=== PATIENT | male | born 1945 | race Caucasian/White ===

== ENCOUNTER → 2016-10-07 | Outpatient (CLI) | payer OTHER | LOC: US 11:30 | DX: M79.604 Pain in right leg (principal) | CPT/HCPCS: 93926; 93971 ==

== ENCOUNTER → 2020-06-29 | Outpatient (CLI) | payer OTHER ==
[~2020-06-29] MED LIST: ASPIRIN EC81 MG PO; CLOPIDOGREL75 MG PO; GLUCOPHAGE1000 MG PO; LEVOFLOXACIN500 MG PO; LEVOTHYROXINE75 MC1 PO; OMEPRAZOLE40 MG PO; TOPROL XL50 MG PO
== END ==
LOC: KOH-I 08:00
DX: D69.6 Thrombocytopenia, unspecified (principal); K76.0 Fatty (change of) liver, not elsewhere classified; K80.20 Calculus of gallbladder without cholecystitis without obstruction; N28.1 Cyst of kidney, acquired; R16.1 Splenomegaly, not elsewhere classified
CPT/HCPCS: 76705

== ENCOUNTER 2020-07-17 17:43 | Emergency (ER) | payer OTHER ==
[2020-07-17 20:21] LABS: HEMOGLOBIN 9.6 gm/dl (14.0-17.5); RED BLOOD COUNT 3.61 M/UL (4.20-5.50); WHITE BLOOD COUNT 7.5 K/UL (4.5-11.0)
[2020-07-17 20:24] LABS: BUN/CREATININE RATIO 18 (0-10)
[2020-07-18 06:30] LABS: RED BLOOD COUNT 3.37 M/UL (4.20-5.50); WHITE BLOOD COUNT 7.4 K/UL (4.5-11.0)
[2020-07-18 06:54] LABS: BUN/CREATININE RATIO 16 (0-10)
[2020-07-18] MEDS ORDERED: LEVOFLOXACIN500 MG PO (15:05)
[2020-07-18] MEDS ORDERED: ASPIRIN EC81 MG PO (15:05)
[2020-07-18] MEDS ORDERED: TOPROL XL50 MG PO (15:05)
[2020-07-18] MEDS ORDERED: OMEPRAZOLE40 MG PO (15:05)
[2020-07-18] MEDS ORDERED: GLUCOPHAGE1000 MG PO (15:05)
[2020-07-18] MEDS ORDERED: CLOPIDOGREL75 MG PO (15:05)
[2020-08-26] MEDS ORDERED: LEVOTHYROXINE75 MC1 PO (07:38)
== END 2020-07-18 15:50 | disposition home or self-care (01) ==
LOC: ER1 17:43 → CDU 22:50
PROVIDERS: Internal Medicine; Physician Assistant
DX: J18.9 Pneumonia, unspecified organism (principal); J96.01 Acute respiratory failure with hypoxia; E11.9 Type 2 diabetes mellitus without complications; I25.10 Atherosclerotic heart disease of native coronary artery without angina pectoris; I11.9 Hypertensive heart disease without heart failure; Z95.1 Presence of aortocoronary bypass graft; Z20.822 Contact with and (suspected) exposure to COVID-19
CPT/HCPCS: 0240U; 36415; 36600; 71045; 80048; 80053; 81001; 82550; 82553; 82803; 82962; 83605; 83874; 84484; 85025; 87040; 87086; 93005; 96365; 96375; 96376; 99285; J0456; J2543; J7030; Q9967

== ENCOUNTER → 2020-08-06 | Outpatient (CLI) | payer OTHER | LOC: CT 09:01 | DX: D69.6 Thrombocytopenia, unspecified (principal); D64.9 Anemia, unspecified; K90.9 Intestinal malabsorption, unspecified; K74.60 Unspecified cirrhosis of liver; K76.6 Portal hypertension; N28.1 Cyst of kidney, acquired; K80.20 Calculus of gallbladder without cholecystitis without obstruction | CPT/HCPCS: Q9967 ==

== ENCOUNTER → 2020-08-17 | Outpatient (CLI) | payer OTHER | LOC: KOH-I 13:05 | DX: R06.02 Shortness of breath (principal); I10 Essential (primary) hypertension; I50.9 Heart failure, unspecified; R07.9 Chest pain, unspecified; R60.0 Localized edema | CPT/HCPCS: 71046 ==

== ENCOUNTER → 2020-08-26 | Day surgery (SDC) | payer OTHER ==
[2020-08-27 08:14] LABS: HBSAG SCREEN Negative (Negative); HEP A AB, IGM Negative (Negative); HEP B CORE AB, IGM Negative (Negative); HEP C VIRUS AB <0.1 (0.0-0.9)
== END | disposition home or self-care (01) ==
LOC: OR 08-25 15:15
PROVIDERS: Internal Medicine Gastroenterology
DX: D50.0 Iron deficiency anemia secondary to blood loss (chronic) (principal); K74.60 Unspecified cirrhosis of liver; K29.00 Acute gastritis without bleeding; K22.4 Dyskinesia of esophagus; K76.6 Portal hypertension; I10 Essential (primary) hypertension; I86.4 Gastric varices; E11.9 Type 2 diabetes mellitus without complications; E03.9 Hypothyroidism, unspecified; E66.01 Morbid (severe) obesity due to excess calories; R16.1 Splenomegaly, not elsewhere classified; Z87.891 Personal history of nicotine dependence; Z80.0 Family history of malignant neoplasm of digestive organs; Z79.84 Long term (current) use of oral hypoglycemic drugs; Z79.899 Other long term (current) drug therapy; Z95.1 Presence of aortocoronary bypass graft; Z20.822 Contact with and (suspected) exposure to COVID-19
CPT/HCPCS: 36415; 80074; 80076; 82962; 86038; J2704; J3010; J7040

== ENCOUNTER → 2020-08-26 | Outpatient (CLI) | payer OTHER ==
[2020-08-26 14:57] LABS: HEMOGLOBIN 7.5 gm/dl (14.0-17.5)
== END ==
LOC: OPSV 13:58 → LAB 13:58
PROVIDERS: Internal Medicine Hematology & Oncology
DX: D50.9 Iron deficiency anemia, unspecified (principal); R06.02 Shortness of breath
CPT/HCPCS: 36415; 85014; 85018; 86850; 86900; 86901; 86920; P9016

== ENCOUNTER → 2020-08-27 | Outpatient (CLI) | payer OTHER | LOC: OPSV 08:00 | DX: D50.9 Iron deficiency anemia, unspecified (principal); R06.02 Shortness of breath | CPT/HCPCS: 36430; J1940; P9016 ==

== ENCOUNTER → 2021-01-19 | Outpatient (CLI) | payer OTHER ==
[~2021-01-19] VITALS: Ht 175.3 cm; Wt 129.3 kg
[2021-01-19 12:11] LABS: HEMOGLOBIN 7.5 gm/dl (14.0-17.5)
== END ==
LOC: OPSV 11:44
PROVIDERS: Nurse Practitioner Psychiatric/Mental Health
DX: D61.818 Other pancytopenia (principal); D64.9 Anemia, unspecified; D50.0 Iron deficiency anemia secondary to blood loss (chronic)
CPT/HCPCS: 36415; 36430; 85014; 85018; 86850; 86900; 86901; 86920; 96375; J1940; J7050; P9016

== ENCOUNTER 2021-01-21 15:34 | Emergency (ER) | payer OTHER ==
[~2021-01-21] VITALS: Ht 175.3 cm; Wt 127.0 kg
[2021-01-21 18:06] LABS: HEMOGLOBIN 8.5 gm/dl (14.0-17.5); WHITE BLOOD COUNT 3.5 K/UL (4.5-11.0)
[2021-01-21 18:12] LABS: BUN/CREATININE RATIO 20 (0-10)
== END 2021-01-21 18:49 | disposition home or self-care (01) ==
LOC: ER1 15:34
PROVIDERS: Physician Assistant
DX: Z23 Encounter for immunization (principal); U07.1 COVID-19; E11.9 Type 2 diabetes mellitus without complications; I50.9 Heart failure, unspecified; D64.9 Anemia, unspecified
CPT/HCPCS: 80053; 85025; 99283; M0243

== ENCOUNTER → 2021-02-24 | Outpatient (CLI) | payer OTHER ==
[~2021-02-24] VITALS: Ht 172.7 cm; Wt 128.8 kg
[2021-02-24 11:14] LABS: HEMOGLOBIN 7.9 gm/dl (14.0-17.5)
== END ==
LOC: OPSV 10:30
PROVIDERS: Nurse Practitioner
DX: D64.9 Anemia, unspecified (principal); D61.818 Other pancytopenia; D50.9 Iron deficiency anemia, unspecified; I50.30 Unspecified diastolic (congestive) heart failure
CPT/HCPCS: 36430; 85014; 85018; 86850; 86900; 86901; 86920; 96375; J1940; J7050; P9016